=== PATIENT | female | born 1940 | race Caucasian/White ===

== ENCOUNTER 2016-09-14 15:26 | Observation (INO) | payer OTHER ==
--- NOTE | ~2016-09-14 | HP ---
History And Physical [place] [id number] [facility] [place]. [address] NAME: CARLI SILVA : 40 STATUS : ADM Serafin PAT#: [id number] AGE: 76 ADM/REG DATE : 09/14/16 MR#: [id number] REPORT SERV DATE: 09/15/16 DICTATED BY: COURTNEY ABAD DATE: 09/15/16 REPORT STATUS : Draft TRANSCRIBED BY: MODHortensia DATE: 09/15/16 DATE OF ADMISSION: 09/14/2016 CHIEF COMPLAINT: A 76-year-old female presenting with confusion, hallucinations, and headaches. HISTORY OF PRESENT ILLNESS: The patient states that she has been having headaches on and off since 02/2016. She wonders if the headache started when she had a cataract surgery. 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 But has just been in the last four days that the patient has had irritability and apparently has been having confusion. The son is the main family member who has prompted her to come to the hospital. She recounts this episode one or two nights ago where she thought four people were standing on her porch, she became extremely paranoid and even called the police about it. She has been irritable, incoherent at times. She notices that her blood sugar has been poorly controlled with blood sugars mostly in the 200s and 300s. No sinus drainage. No shortness of breath. No cough. No chest pain. No abdominal pain. No back pain. No hemiparesis. No lightheadedness. No vertigo. No double vision. REVIEW OF SYSTEMS: Otherwise, a 14-point review of systems was obtained and was negative. PAST MEDICAL HISTORY: 1. Hypertension. 2. Gastroesophageal reflux disorder. 3. Diabetes. 4. No cardiac disease. 5. No lung disease. PAST SURGICAL HISTORY: 1. Cholecystectomy. 2. Hysterectomy. 3. Bilateral knee surgeries. ALLERGIES: ASPIRIN. SOCIAL HISTORY: No tobacco abuse. No alcohol abuse. Nine months ago, her of 52 years , and she has been dealing with quite a bit of grief related to that. She lives alone, but her son lives nearby. She has a total of three sons. She has three dogs History And Physical [facility] [address] [place]. [address] NAME: CARLI SILVA : 40 STATUS : ADM Serafin PAT#: [id number] AGE: 76 ADM/REG DATE : 09/14/16 MR#: [id number] REPORT SERV DATE: 09/15/16 DICTATED BY: COURTNEY ABAD DATE: 09/15/16 REPORT STATUS : Draft TRANSCRIBED BY: PHYLLIS DATE: 09/15/16 that she cares for in the home. She lives in a "big house" that is difficult to keep in [place], [place]. FAMILY HISTORY: Diabetes. CURRENT MEDICATIONS: Eye drops, vitamin D, Celexa 10 mg p.o. daily, glipizide 20 mg p.o. b.i.d., Lantus 25 units subcutaneous at bedtime, levothyroxine 75 mcg p.o. daily, losartan 25 mg p.o. daily, metformin 1000 mg p.o. b.i.d., Pravachol 40 mg p.o. daily, and nasal spray. PHYSICAL EXAMINATION: VITAL SIGNS: Temperature 98.0, pulse 75, blood pressure 170/88, respiratory rate 14, and O2 saturation 100% on room air. GENERAL: A pleasant, cooperative female, in no evidence of distress at this time. HEENT: Pupils equal, round, and reactive to light. No conjunctival pallor. No scleral icterus. Nares are patent. Oropharynx is clear of obstruction. Moist mucous membranes. NECK: Trachea midline. No thyromegaly. LYMPH: No cervical lymphadenopathy. No supraclavicular lymphadenopathy. NEUROLOGICAL: Cranial nerves 2 through 12 are intact and symmetrical. The patient has 5/5 strength in upper and lower extremities that is symmetrical. RESPIRATORY: Clear to auscultation at bases. No wheezes, rales, or rhonchi. Normal respiratory effort. CARDIOVASCULAR: Regular rate and rhythm. No murmurs, rubs, or gallops. No current extremity edema is appreciated. ABDOMEN: Soft, nontender, nondistended. Normal bowel sounds auscultated throughout. No hepatosplenomegaly. DERMATOLOGICAL: Warm and dry extremities. No pallor. No cyanosis. PSYCHIATRIC: Normal affect. Good mood. Alert and oriented x3. LABORATORY DATA: White blood cell count 10.4, hemoglobin 14, hematocrit 41, and platelets 258. Sodium 135, potassium 4.3, chloride 97, bicarb 30, BUN 15, creatinine 0.76, and glucose 285. INR 1.0. Liver enzymes within normal limits. STUDIES: CT scan of the brain without contrast shows no acute intracranial process. ASSESSMENT AND PLAN: 1. Encephalopathy with hallucinations. Negative CT scan of the brain. We will obtain Neurology consult. Start aspirin. No offending medications. I am concerned about a grief reaction as the patient's of 52 years just nine months ago. 2. Headache. Check ESR and CRP to rule out temporal arteritis. 3. Uncontrolled diabetes. Check hemoglobin A1c. Continue basal insulin, oral medications, and aggressive sliding scale insulin. 4. Hypertension, p.r.n. medications and monitor. [facility]/MOD History And Physical [address] [address] NAME: CARLI SILVA : 40 STATUS : ADM Serafin PAT#: [id number] AGE: 76 ADM/REG DATE : 09/14/16 MR#: [id number] REPORT SERV DATE: 09/15/16 DICTATED BY: COURTNEY ABAD DATE: 09/15/16 REPORT STATUS : Draft TRANSCRIBED BY: PHYLLIS DATE: 09/15/16 Courtney Abad M.D. / [id number] CC: MD Silvia Keating M.D.
--- NOTE | ~2016-09-14 | DS ---
Discharge Summary [place] [address] [place] [address] NAME: CARLI SILVA : 40 STATUS : ADM Serafin PAT#: [id number] AGE: 76 ADM/REG DATE : 09/14/16 MR#: [id number] REPORT SERV DATE: 09/16/16 DICTATED BY: TOMY TAN DATE: 09/16/16 REPORT STATUS : Draft TRANSCRIBED BY: MODHortensia DATE: 09/16/16 ADMISSION DATE: 09/14/2016 DISCHARGE DATE: 09/16/2016 CONSULTATION: Neurology. INVASIVE PROCEDURE/OPERATION: None. DISCHARGE DIAGNOSES: 1. TIA. 2. Status migrainosus. 3. History of old CVA. 4. Diabetes mellitus type 2. 5. Hypertension. 6. Hypothyroidism. 7. Dyslipidemia. 8. Depression. 9. Hypothyroidism. DISCHARGE CONDITION: Stable. IMAGING: CT scan brain without contrast, impression: 1. No acute intracranial abnormality. 2. Atrophy. Chronic microvascular white matter ischemic changes. MRI brain without contrast, impression: 1. Moderate diffuse cerebral involutional changes. 2. Small 2 mm old lacunar infarct left thalamus. 3. No acute CVA or other acute intracranial pathology. MRA of the neck, impression: 1. Unremarkable MRA of the carotid arteries, no significant atherosclerotic plaque or stenosis. 2. Normal caliber and antegrade flow bilateral vertebral arteries. MRI cervical spine, impression: 1. At C3-C4, there is a small to moderate focal central disc protrusion, although resulting in only mild central spinal stenosis with 8.1 mm anteroposterior canal diameter, not felt to be clinically significant. 2. At C4-C5, there is a moderate broad-based central disc protrusion resulting in only very mild central spinal stenosis with 8.7 mm anteroposterior canal diameter. Not felt to be clinically significant. 3. At C5-C6, there is a moderate disc osteophyte formation resulting in only very mild central spinal stenosis with 8.9 mm anteroposterior canal diameter. Not felt to be clinically significant. MRA head, impression: Unremarkable intracranial MRA. ECHOCARDIOGRAM: Summary: Technically difficult study due to poor acoustic window. Normal left ventricular systolic function with a calculated ejection fraction of 60%. Normal right [address]charge Summary [address] [place] [address] NAME: CARLI SILVA : 40 STATUS : ADM Serafin PAT#: [id number] AGE: 76 ADM/REG DATE : 09/14/16 MR#: [id number] REPORT SERV DATE: 09/16/16 DICTATED BY: TOMY TAN DATE: 09/16/16 REPORT STATUS : Draft TRANSCRIBED BY: MODL DATE: 09/16/16 ventricular chamber size and systolic function. No evidence of significant valvular regurgitation or stenosis. HISTORY OF PRESENT ILLNESS: For detailed HPI, please make reference to Dr. Alexis Bridges's dictation on 09/14/2016. In brief, this is a 76-year-old female with medical history of dyslipidemia, diabetes mellitus, who presented to the hospital with complaints of headaches, confusion, and visual hallucination. It was noted that prior to presentation, the patient had an acute episode of confusion. She reported seeing four people that were standing on a porch. She became extremely paranoid. The patient reported that she was having visual hallucinations as recounted by family members according to the HPI. In addition to this, she was also having worsening headaches. PHYSICAL EXAMINATION: VITAL SIGNS: In the ER, vital signs, blood pressure 170/88, temperature 98.0, and pulse 75. NEUROLOGIC: Cranial nerves 2 through 12 were intact. Strength was 5/5 in all extremities, symmetrical. PSYCHIATRY: Exam showed normal affect, good mood. She was alert and oriented x3. DATA: CT of the brain without contrast showed no acute intracranial process. LABORATORY DATA: On presentation, white blood cell was 10.4, hemoglobin was 14, hematocrit was 41, and platelet was 255. Sodium was 135, potassium was 4.3, chloride was 94, bicarb was 30, BUN was 15, creatinine was 0.76. Glucose was 285. INR was 1.0. ASSESSMENT: An assessment of acute encephalopathy to rule out acute CVA and migraine headache was made in the ER. The patient was admitted to the Hospitalist Service. HOSPITAL COURSE: 1. Acute encephalopathy. Neurology was consulted. Recommended the patient to undergo MRI, MRA of the brain, head, and neck. Report of MRI showed no acute cerebral infarct. However noted was old lacunar infarct as dictated above. No significant spinal stenosis was noted on the MRI. 2. The patient also had an echocardiogram that showed normal EF. No evidence of cardiac thrombus. The patient became more alert, had no further episodes of hallucinations during the course of this admission, had no focal neurologic deficits. Given the previous old CVA noted on MRI, Neurology recommended at the time of discharge, the patient to continue Plavix and statin for secondary prevention of cerebrovascular accident. The patient was advised to continue followup with primary care physician as an outpatient. 3. Status migrainosus. The patient noted to have unilateral pounding headache with hallucinations on presentation. Neurology recommended migraine headache cocktail which includes Depakote. The patient's headache is significantly improved after treatment. The patient was advised at the time of discharge. The patient had no further episodes of headaches. The patient was advised to continue followup with primary care physician. Discharge Summary [place] [address] [facility] [place]. [address] NAME: CARLI SILVA : 40 STATUS : ADM Sreafin PAT#: [id number] AGE: 76 ADM/REG DATE : 09/14/16 MR#: [id number] REPORT SERV DATE: 09/16/16 DICTATED BY: TOMY TAN DATE: 09/16/16 REPORT STATUS : Draft TRANSCRIBED BY: PHYLLIS DATE: 09/16/16 4. Diabetes mellitus. On presentation to the hospital, the patient's oral hypoglycemics were initially held. The patient's diabetes was managed with insulin subcu at the time of discharge. The patient was advised to recontinue oral hypoglycemics and insulin subcu. No additional changes were made to the patient's diabetes management. The patient was advised to continue followup with primary care physician. DISCHARGE MEDICATIONS: 1. Plavix 75 mg p.o. daily. 2. Lipitor 40 mg p.o. at bedtime. 3. Celexa 10 mg p.o. daily. 4. Vitamin D3, 3000 units p.o. daily. 5. Levothyroxine 75 mcg p.o. daily. 6. Cozaar mg p.o. daily. 7. Metformin mg p.o. b.i.d. 8. Glipizide 20 mg p.o. daily. 9. Artificial Tears. DISCHARGE ACTIVITIES: As tolerated. DISCHARGE FOLLOWUP: Follow up with primary care physician within one week of discharge. Greater than 30 minutes was used to prepare this patient's discharge, reconcile medication, advising the patient on discharge plans and followup. DICTATED BY: MD LEANNE Keating/PHYLLIS Tomy Tan MD / [id number] CC: MD TIM Keating
--- NOTE | ~2016-09-14 | CN ---
Consultation Report [facility] [address] [place]. [address] NAME: CARLI SILVA : 40 STATUS : ADM Serafin PAT#: [id number] AGE: 76 ADM/REG DATE : 09/14/16 MR#: [id number] REPORT SERV DATE: 09/15/16 DICTATED BY: SOLE NICOLE DATE: 09/15/16 REPORT STATUS : Draft TRANSCRIBED BY: MODL DATE: 09/15/16 NEUROLOGY CONSULTATION DATE OF CONSULTATION: 09/15/2016 REASON FOR CONSULTATION: Encephalopathy and headache. HOSPITALIST: Tomy Anders MD HISTORY OF PRESENT ILLNESS: The patient is a 76-year-old female, who underwent surgical intervention for cataracts in 02/2016. She had her right cataract done, but was scheduled to have her left one surgically corrected this week. She developed some confusion over the last four days and decided to come in for further evaluation and treatment. Of particular note, the patient mentions that she has had a headache since 02/2016. This is very unusual for her since she has no history of migraines, tension headaches, or sinus headaches. Her headache can be severe at times at 10/10 on a Likert scale rating. It will wax and wane. 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 However, she does have preceding photophobia and phonophobia, but denies any osmophobia. Occasionally, she will have nausea without vomiting. She denies any aura or prodrome. She denies any offending agents or triggers. She denies any temporal tenderness, but states that her headaches are predominantly occipital in nature and tend to be more right-sided than left-sided. The patient mentions that she will take some [id number] Aleve/Advil, but may be three times a week p.r.n. for her headache. PAST MEDICAL HISTORY: Hypertension, GERD, diabetes. PAST SURGICAL HISTORY: Cholecystectomy, total abdominal hysterectomy, bilateral total knee arthroplasty, and cataract extraction and removal on the right. HOME MEDICATION LIST: Includes artificial tears; vitamin D3, 1000 units p.o. daily; Celexa 10 mg daily; Glucotrol 20 mg b.i.d.; Lantus 25 units subcu at bedtime; levothyroxine 75 mcg daily; Cozaar 25 mg daily; metformin 1000 mg b.i.d.; Pravachol 40 mg daily; and OTC nasal spray three times a day p.r.n. SOCIAL HISTORY: The patient is a , her of 52 years recently , this has been nine months ago, she now lives alone, and she states that she is grieving that he was her "soulmate." She has three sons. She has dogs, which she is very fond of. She used to work for [email or web address]. She does not smoke, drink alcohol, or use illicits. FAMILY HISTORY: The patient's mother from cancer. Her father and her brother from heart disease, specifically myocardial infarction. Consultation Report [address] [place]. [address] NAME: CARLI SILVA : 40 STATUS : ADM Serafin PAT#: [id number] AGE: 76 ADM/REG DATE : 09/14/16 MR#: [id number] REPORT SERV DATE: 09/15/16 DICTATED BY: SOLE NICOLE DATE: 09/15/16 REPORT STATUS : Draft TRANSCRIBED BY: PHYLLIS DATE: 09/15/16 REVIEW OF SYSTEMS: For pertinent positives, please refer to HPI. PHYSICAL EXAMINATION: GENERAL: The patient is a 76-year-old female, who stands 5 feet 6 inches tall and weighs 124 pounds. VITAL SIGNS: She is afebrile. Heart rate 63, respiratory rate 18, O2 sats on room air 97%, blood pressure 147/67. NEURO: She is alert. She is oriented x4. She is very appropriate. She communicates well. In fact, she is quite chatty, but pleasantly so. Speech is clear. Language fluent. Pupils are 4 mm, PERRLA. She does have slight lateral nystagmus. EOMs are intact. Funduscopic exam, positive red reflex bilaterally. Normal disk/cup ratio. No nicking, hemorrhaging, papillary edema, venous pulsations viewed bilaterally. Peripheral vision via confrontation is full in both downey. Other cranial nerves are intact. [id number], no ataxia. No pronator drift. Upper extremity strength is a 5/5 bilaterally. Upper DTRs 2+ bilaterally and brisk. No reported sensory deficits. Lower extremity strength is a 4/5 bilaterally. Right patellar DTR unelicitable, left is intact. Downgoing toes. She can get in and out of the bed without any difficulty. Gait is somewhat imbalanced, but nonataxic. Romberg positive. Unable to tandem. NECK: No carotid bruits, JVD, or thyromegaly. CHEST: Lung sounds clear. CARDIAC: Regular rate and rhythm. LABORATORY DATA: CBC is normal. BMP relatively normal, except the glucose of 151. C- reactive protein 3.6. CT scan of the head, no acute abnormalities. ASSESSMENT/PLAN: 1. New onset of headache over the last six months, most likely migrainous in nature. However, some of the differential diagnosis would include stroke. Therefore, the patient will undergo more imaging. She will have an MRI of the brain with and without gadolinium, an MRA of the head and neck, an echocardiogram. She cannot be on aspirin since she is allergic to this, so we will wait for the results. If she does have stroke, she will be placed on aspirin and a statin. Another differential diagnosis would include giant cell arteritis. We are awaiting for the patient's sed rate to come back. Her C-reactive protein is normal, and her presentation is atypical for giant cell arteritis. Cervical stenosis abnormalities, we will obtain an MRI of the C-spine with and without gadolinium. If all the above come back normal, we will consider sending the patient for an LP under fluoroscopy. Lastly, the patient will be given Depakote IV along with Compazine and Toradol to relieve her headache symptoms. 2. Grieving. The patient lost her of 52 years approximately nine months ago. Supportive care will be given. Thank you again for including us in consultation. Consultation Report [place] [address] [place]. [address] NAME: CARLI SILVA : 40 STATUS : ADM Serafin PAT#: [id number] AGE: 76 ADM/REG DATE : 09/14/16 MR#: [id number] REPORT SERV DATE: 09/15/16 DICTATED BY: SOLE NICOLE DATE: 09/15/16 REPORT STATUS : Draft TRANSCRIBED BY: PHYLLIS DATE: 09/15/16 KING/PHYLLIS Sole Nicole DNP, [facility] / [id number] CC: MD Nadia Keating Frances
[2016-09-14 18:05] LABS: BASOPHILS 0.4 %; BASOPHILS ABSOLUTE 0.04 10/3/uL (0.0-0.16); EOSINOPHILS ABSOLUTE 0.21 10/3/uL (0.0-0.53); ER CBC TAT 0 Hrs 11 Mins; HEMATOCRIT 41.4 % (36.0-48.0); HEMOGLOBIN 14.3 g/dL (12.0-16.0); IMMATURE GRANULOCYTES 0.2 %; IMMATURE GRANULOCYTES ABSOLUTE 0.02 10/3/uL (0.0-0.11); LYMPHOCYTES ABSOLUTE 3.97 10/3/uL (0.67-4.30); MEAN CORPUS HGB CONC 34.5 g/dL (32.0-36.0); MEAN CORPUSCULAR HEMOGLOB 29.5 pg (26.0-34.0); MEAN CORPUSCULAR VOLUME 85.4 fL (80-100); MEAN PLATELET VOLUME 11.1 fL (9.2-13.0); MONOCYTES ABSOLUTE 0.63 10/3/uL (0.21-1.20); NEUTROPHILS 53.4 %; NEUTROPHILS ABSOLUTE 5.57 10/3/uL (2.02-8.40); PLATELET COUNT 258 10/3/uL (150-400); RBC DISTRIBUTION WIDTH 12.8 % (12.0-16.0); RED CELL COUNT 4.85 10/6/uL (4.0-5.6); WHITE BLOOD CELLS 10.4 10/3/uL (4.5-10.5)
[2016-09-14 18:07] LABS: MANUAL DIFF NO %
[2016-09-14 18:13] LABS: PARTIAL THROMBO TIME 29.2 SEC (22.5-37.2); PROTIME (NOT ORD) 13.2 SEC (12.0-14.5)
[2016-09-14 18:18] LABS: ALBUMIN 3.7 G/DL (3.5-5.0); ALKALINE PHOSPHATASE 84 U/L (45-117); BUN (BLOOD UREA NITROGEN) 15 MG/DL (6-23); CALCIUM, SERUM 9.1 MG/DL (8.5-10.4); CHLORIDE, SERUM 97 MMOL/L (96-112); CO2 (CARBON DIOXIDE) 30 MMOL/L (24-34); CREATININE 0.76 MG/DL (0.55-1.02); GFR AFRICAN AMERICAN 88 ML/MIN (>=60); GFR NON AFRICAN AMERICAN 76 ML/MIN (>=60); GLOBULIN 3.8 G/DL (2.5-4.1); GLUCOSE, SERUM 285 MG/DL (60-99); POTASSIUM, SERUM 4.3 MMOL/L (3.5-5.3); SGOT(AST) 40 U/L (5-40); SGPT(ALT) 44 U/L (5-65); SODIUM, SERUM 135 MMOL/L (135-148); TOTAL BILIRUBIN 0.4 MG/DL (0-1.2); TOTAL PROTEIN 7.5 G/DL (6.0-8.5)
[2016-09-14] MEDS ORDERED: GLUCOPHAGE1000 MG PO (21:17)
[2016-09-14] MEDS ORDERED: COZ25 PO (21:17)
[2016-09-14] MEDS ORDERED: LANTUS SC (21:17)
[2016-09-14] MEDS ORDERED: LIPITOR80 MG PO (21:17)
[2016-09-14] MEDS ORDERED: LEVOTHYROXIN75 MCG PO (21:18)
[2016-09-14] MEDS ORDERED: CELEXA10 PO (21:18)
[2016-09-14] MEDS ORDERED: GLUCOTRO10 PO (21:18)
[2016-09-14] MEDS ORDERED: VITAMIN D1000 UNI1 PO (21:18)
[2016-09-14] MEDS ORDERED: OTC NASAL SPRAY NAS (21:20)
[2016-09-14] MEDS ORDERED: TEARS PURE OPH (21:20)
[2016-09-15 06:53] LABS: BASOPHILS 0.6 %; BASOPHILS ABSOLUTE 0.05 10/3/uL (0.0-0.16); EOSINOPHILS 3.9 %; EOSINOPHILS ABSOLUTE 0.31 10/3/uL (0.0-0.53); HEMATOCRIT 40.9 % (36.0-48.0); HEMOGLOBIN 14.1 g/dL (12.0-16.0); IMMATURE GRANULOCYTES 0.1 %; IMMATURE GRANULOCYTES ABSOLUTE 0.01 10/3/uL (0.0-0.11); LYMPHOCYTES 54.5 %; LYMPHOCYTES ABSOLUTE 4.33 10/3/uL (0.67-4.30); MEAN CORPUS HGB CONC 34.5 g/dL (32.0-36.0); MEAN CORPUSCULAR HEMOGLOB 29.7 pg (26.0-34.0); MEAN CORPUSCULAR VOLUME 86.3 fL (80-100); MEAN PLATELET VOLUME 10.8 fL (9.2-13.0); MONOCYTES 6.9 %; MONOCYTES ABSOLUTE 0.55 10/3/uL (0.21-1.20); PLATELET COUNT 253 10/3/uL (150-400); RBC DISTRIBUTION WIDTH 12.8 % (12.0-16.0); RED CELL COUNT 4.74 10/6/uL (4.0-5.6)
[2016-09-15 06:59] LABS: MANUAL DIFF NO %
[2016-09-15 07:09] LABS: INTERNATIONAL NORMAL RATI 1.1 UNITS (-); PARTIAL THROMBO TIME 33.7 SEC (22.5-37.2); PROTIME (NOT ORD) 13.7 SEC (12.0-14.5)
[2016-09-15 07:20] LABS: ALBUMIN 3.4 G/DL (3.5-5.0); ALKALINE PHOSPHATASE 76 U/L (45-117); BUN (BLOOD UREA NITROGEN) 15 MG/DL (6-23); CHLORIDE, SERUM 103 MMOL/L (96-112); CO2 (CARBON DIOXIDE) 30 MMOL/L (24-34); CREATININE 0.66 MG/DL (0.55-1.02); GFR AFRICAN AMERICAN 99 ML/MIN (>=60); GFR NON AFRICAN AMERICAN 86 ML/MIN (>=60); GLOBULIN 3.4 G/DL (2.5-4.1); GLUCOSE, SERUM 151 MG/DL (60-99); POTASSIUM, SERUM 3.9 MMOL/L (3.5-5.3); SGOT(AST) 32 U/L (5-40); SGPT(ALT) 39 U/L (5-65); SODIUM, SERUM 139 MMOL/L (135-148); TOTAL BILIRUBIN 0.7 MG/DL (0-1.2); TOTAL PROTEIN 6.8 G/DL (6.0-8.5); TROPONIN I <0.02 NG/ML (<0.05)
[2016-09-15 07:36] LABS: C-REACTIVE PROTEIN 3.6 MG/L (<8.0)
[2016-09-15 08:00] LABS: SED RATE 7 MM/HR (0-20)
[2016-09-15 12:23] LABS: CHOL/HDL RATIO(NOT ORDER) 4.7 (0-5); CHOLESTEROL 168 MG/DL (< 200); CPK 216 U/L (0-200); HDL CHOLESTEROL 36 MG/DL (> 49); LDL CHOLESTEROL 105 MG/DL (< 130); NON-HDL CHOLESTEROL 132 MG/DL (< 160); TRIGLYCERIDE 135 MG/DL (< 150)
[2016-09-15 12:25] LABS: DIRECT BILIRUBIN 0.1 MG/DL (0.0-0.4); INDIRECT BILIRUBIN(NOT ORDER) 0.6 MG/DL (0.1-0.9)
[2016-09-15 12:26] LABS: FOLATE 25.7 NG/ML (>5.2)
[2016-09-15 13:55] LABS: GLYCOHEMOGLOBIN (HbA1c) 8.4 % (4.7-6.1)
[2016-09-16 08:39] LABS: BASOPHILS 0.4 %; BASOPHILS ABSOLUTE 0.03 10/3/uL (0.0-0.16); EOSINOPHILS 3.8 %; EOSINOPHILS ABSOLUTE 0.29 10/3/uL (0.0-0.53); HEMATOCRIT 41.1 % (36.0-48.0); IMMATURE GRANULOCYTES 0.1 %; IMMATURE GRANULOCYTES ABSOLUTE 0.01 10/3/uL (0.0-0.11); LYMPHOCYTES 50.9 %; LYMPHOCYTES ABSOLUTE 3.93 10/3/uL (0.67-4.30); MEAN CORPUS HGB CONC 34.1 g/dL (32.0-36.0); MEAN CORPUSCULAR HEMOGLOB 29.4 pg (26.0-34.0); MEAN CORPUSCULAR VOLUME 86.3 fL (80-100); MEAN PLATELET VOLUME 10.7 fL (9.2-13.0); MONOCYTES 8.3 %; MONOCYTES ABSOLUTE 0.64 10/3/uL (0.21-1.20); NEUTROPHILS 36.5 %; NEUTROPHILS ABSOLUTE 2.82 10/3/uL (2.02-8.40); PLATELET COUNT 267 10/3/uL (150-400); RBC DISTRIBUTION WIDTH 12.9 % (12.0-16.0); RED CELL COUNT 4.76 10/6/uL (4.0-5.6); WHITE BLOOD CELLS 7.7 10/3/uL (4.5-10.5)
[2016-09-16 08:40] LABS: MANUAL DIFF NO %
[2016-09-16 08:59] LABS: BUN (BLOOD UREA NITROGEN) 16 MG/DL (6-23); CALCIUM, SERUM 8.7 MG/DL (8.5-10.4); CHLORIDE, SERUM 105 MMOL/L (96-112); CO2 (CARBON DIOXIDE) 29 MMOL/L (24-34); CREATININE 0.65 MG/DL (0.55-1.02); GFR AFRICAN AMERICAN 100 ML/MIN (>=60); GFR NON AFRICAN AMERICAN 86 ML/MIN (>=60); GLUCOSE, SERUM 131 MG/DL (60-99); PHOSPHORUS, SERUM 3.8 MG/DL (2.5-4.5); POTASSIUM, SERUM 4.1 MMOL/L (3.5-5.3); SODIUM, SERUM 139 MMOL/L (135-148)
[2016-09-16] MEDS ORDERED: PLAVIX PO (18:07)
== END 2016-09-16 19:48 | disposition home or self-care (01) ==
LOC: ER 15:26 → 1SO 21:19
PROVIDERS: Emergency Medicine; Hospitalist; Nurse Practitioner
DX: G93.40 Encephalopathy, unspecified (principal); G43.901 Migraine, unspecified, not intractable, with status migrainosus; I10 Essential (primary) hypertension; E11.9 Type 2 diabetes mellitus without complications; K21.9 Gastro-esophageal reflux disease without esophagitis; Z83.3 Family history of diabetes mellitus; Z80.9 Family history of malignant neoplasm, unspecified; Z82.49 Family history of ischemic heart disease and other diseases of the circulatory system; Z96.653 Presence of artificial knee joint, bilateral; Z90.49 Acquired absence of other specified parts of digestive tract; Z90.710 Acquired absence of both cervix and uterus; Z98.41 Cataract extraction status, right eye; Z88.6 Allergy status to analgesic agent; Z98.890 Other specified postprocedural states; Z79.4 Long term (current) use of insulin; Z79.84 Long term (current) use of oral hypoglycemic drugs; Z79.899 Other long term (current) drug therapy
CPT/HCPCS: 70450; 70544; 70548; 70553; 72156; 80048; 80053; 80061; 82140; 82248; 82550; 82607; 82746; 82962; 83036; 83735; 83880; 84100; 84443; 84484; 85025; 85610; 85652; 85730; 86140; 93306; 96372; 96374; 96375; 99285; A9270-GY; A9577; G0378; J0780; J1885

== ENCOUNTER 2016-12-21 15:38 | Emergency (ER) | payer OTHER ==
[~2016-12-21 15:38] MED LIST: CELEXA10 PO; COZ25 PO; GLUCOPHAGE1000 MG PO; GLUCOTRO10 PO; LANTUS SC; LEVOTHYROXIN75 MCG PO; LIPITOR80 MG PO; OTC NASAL SPRAY NAS; PLAVIX PO; TEARS PURE OPH; VITAMIN D1000 UNI1 PO
[2016-12-21 17:36] LABS: BASOPHILS 0.2 %; BASOPHILS ABSOLUTE 0.02 10/3/uL (0.0-0.16); EOSINOPHILS 1.6 %; EOSINOPHILS ABSOLUTE 0.14 10/3/uL (0.0-0.53); ER CBC TAT 0 Hrs 05 Mins; HEMOGLOBIN 15.5 g/dL (12.0-16.0); IMMATURE GRANULOCYTES 0.4 %; IMMATURE GRANULOCYTES ABSOLUTE 0.04 10/3/uL (0.0-0.11); LYMPHOCYTES 32.4 %; LYMPHOCYTES ABSOLUTE 2.93 10/3/uL (0.67-4.30); MEAN CORPUS HGB CONC 33.8 g/dL (32.0-36.0); MEAN CORPUSCULAR HEMOGLOB 28.9 pg (26.0-34.0); MEAN CORPUSCULAR VOLUME 85.5 fL (80-100); MEAN PLATELET VOLUME 9.9 fL (9.2-13.0); MONOCYTES 9.2 %; MONOCYTES ABSOLUTE 0.83 10/3/uL (0.21-1.20); NEUTROPHILS 56.2 %; NEUTROPHILS ABSOLUTE 5.07 10/3/uL (2.02-8.40); PLATELET COUNT 259 10/3/uL (150-400); RBC DISTRIBUTION WIDTH 12.8 % (12.0-16.0); RED CELL COUNT 5.37 10/6/uL (4.0-5.6)
[2016-12-21 17:39] LABS: HEMATOCRIT 45.9 % (36.0-48.0); MANUAL DIFF NO %
[2016-12-21 17:49] LABS: INFLUENZA A SCREEN NEGATIVE (NEGATIVE); INFLUENZA B SCREEN NEGATIVE (NEGATIVE)
[2016-12-21 17:51] LABS: A/G RATIO 0.9 (0.7-1.9); ALBUMIN 3.5 G/DL (3.5-5.0); ALKALINE PHOSPHATASE 81 U/L (45-117); CALCIUM, SERUM 9.1 MG/DL (8.5-10.4); CHLORIDE, SERUM 98 MMOL/L (96-112); CO2 (CARBON DIOXIDE) 28 MMOL/L (24-34); CREATININE 0.95 MG/DL (0.55-1.02); GFR AFRICAN AMERICAN 67 ML/MIN (>=60); GFR NON AFRICAN AMERICAN 58 ML/MIN (>=60); POTASSIUM, SERUM 4.1 MMOL/L (3.5-5.3); SGOT(AST) 41 U/L (5-40); SGPT(ALT) 39 U/L (5-65); SODIUM, SERUM 136 MMOL/L (135-148); TOTAL BILIRUBIN 0.8 MG/DL (0-1.2); TOTAL PROTEIN 7.5 G/DL (6.0-8.5)
[2016-12-21 17:52] LABS: BUN (BLOOD UREA NITROGEN) 21 MG/DL (6-23); GLUCOSE, SERUM 289 MG/DL (60-99)
== END 2016-12-21 19:45 | disposition home or self-care (01) ==
LOC: ER 15:38
PROVIDERS: Hospitalist
DX: J40 Bronchitis, not specified as acute or chronic (principal); E10.9 Type 1 diabetes mellitus without complications; Z87.01 Personal history of pneumonia (recurrent); Z88.6 Allergy status to analgesic agent; Z79.4 Long term (current) use of insulin; Z79.899 Other long term (current) drug therapy
CPT/HCPCS: 36600; 71020; 80053; 82330; 82803; 82947; 84132; 84295; 85014; 85025; 87040; 87070; 87205; 87804; 93005; 94640; 96365; 96366; 96375; 99284; J0456